=== PATIENT | male | born 1965 | race Caucasian/White ===

== ENCOUNTER 2018-06-06 07:17 | Day surgery (SDC) | payer BC ==
[~2018-06-06] VITALS: Ht 185.4 cm; Wt 86.2 kg
[2018-06-06] VITALS (7 sets, daily range): BP systolic 114–145; BP diastolic 80–98
[2018-06-06] MEDS ORDERED: NASONEX17 GM NASAL (07:49)
[2018-06-06] MEDS ORDERED: LR 1000ml ONE (08:30)
[2018-06-06] MEDS ORDERED: Propofol 200mg/20ml IV ONE (08:30)
[2018-06-06] MEDS ORDERED: Lidocaine 1% MPF 10mg/ml 5ml ONE (08:30)
--- NOTE | 2018-06-06 08:32 | Short Stay Surgery H&P ---
History of Present Illness History of Present Illness Chief Complaint see typed H&P HPI Rodney Garrett is a 53 year old male who was admitted on for History Of Colon Polyps Patient History Allergies: Coded Allergies: No Known Allergies (Unverified , 06/06/18) Medication History Scheduled Mometasone Furoate (Nasonex), 2 SPRAYS NASAL DAILY, (Reported) Physical Exam Vital Signs Last Vital Signs Date Time Temp Pulse Resp B/P (MAP) Pulse Ox O2 Delivery O2 Flow Rate FiO2 06/06/18 07:49 Room Air 06/06/18 07:44 98.1 88 18 145/98 (114) 98 98.1 Plan Attestation Are the patient's medical conditions optimized for surgery? Lupe Melo MD Jun 06, 2018 08:32
--- NOTE | 2018-06-06 08:34 | Pre-Procedure Note/Attestation ---
Pre-Procedure Note/Attestation Complete Prior to Procedure Planned Procedure: not applicable Procedure Narrative: colon Indications for Procedure Pre-Operative Diagnosis: colon screening, FH of Colon CA Attestation I attest that I discussed the nature of the procedure; its benefits; risks and complications; and alternatives (and the risks and benefits of such alternatives ), prior to the procedure, with the patient (or the patient's legal advertising sales representative). I attest that, if there was a reasonable possibility of needing a blood transfusion, the patient (or the patient's legal advertising sales representative) was given the [place] [employer] standardized written summary, pursuant to the Dewey Nadeem Blood Safety Act ([place] Health and Safety Code # 1645, as amended). I attest that I re-evaluated the patient just prior to the surgery and that there has been no change in the patient's H&P, except as documented below: Lupe Melo MD Jun 06, 2018 08:34
[2018-06-06] MEDS ORDERED: LR 1000ml 1,000 ML IVLG SCH (08:51)
[2018-06-06] MEDS ORDERED: Midazolam 2mg/2ml Inj IVP PRN (09:00)
[2018-06-06] MEDS ORDERED: DiphenhydrAMINE 50mg/ml Inj IVP PRN (09:00)
[2018-06-06] MEDS ORDERED: Atropine Inj 1mg/10ml Syr IV PRN (09:00)
[2018-06-06] MEDS ORDERED: fentaNYL 100 mcg/2 mL IV PRN (09:00)
--- NOTE | 2018-06-06 09:03 | Anethesia Preoperative Eval ---
Anesthesia Pre-op PMH/ROS General Date of Evaluation: Jun 06, 2018 Time of Evaluation: 08:22 Anesthesiologist: mary ASA Score: ASA 1 Mallampati Score Class I : Soft palate, uvula, fauces, pillars visible Class II: Soft palate, uvula, fauces visible Class III: Soft palate, base of uvula visible Class IV: Only hard plate visible Mallampati Classification: Class I Surgeon: liam Diagnosis: hx/o colon polyps Surgical Procedure: colonoscopy Anesthesia History: none Family History: no anesthesia problems Allergies: Coded Allergies: No Known Allergies (Unverified , 06/06/18) Medications: see eMAR Anesthesia Pre-op Phys. Exam Physician Exam Last Vital Signs Date Time Temp Pulse Resp B/P (MAP) Pulse Ox O2 Delivery O2 Flow Rate FiO2 06/06/18 07:49 Room Air 06/06/18 07:44 98.1 88 18 145/98 (114) 98 98.1 Constitutional: NAD Neurologic: CN 2-12 intact Cardiovascular: RRR Respiratory: CTA Gastrointestinal: S/NT/ND Airway Exam Mallampati Score: Class II MO: full Neck: supple TMD: 2fb ROM: full Teeth: intact Anesthesia Pre-op A/P Risk Assessment & Plan Assessment: asa1 Plan: mac Status Change Before Surgery: No Pre-Antibiotics Drug: Isis Quiñones MD Jun 06, 2018 09:03
--- NOTE | 2018-06-06 09:13 | Endoscopy Procedure Note ---
Endoscopy Procedure Note General Indication for Procedure: screening Procedures Performed: colonoscopy Operative Findings/Diagnosis: TV polyp - Bx, clip, L>R tics Specimen: yes Pt Tolerated Procedure Well: Yes Estimated Blood Loss: minimal Anesthesia Anesthesiologist: Ben Bermudez Anesthesia: MAC Medications Medication Given: see anesthesia record Inserted Devices Implant(s) used?: No GI Core Measures 50 yrs or older w/o bx or poly: No 10yrs. F/U not recommended: No If not recommended, why?: Above average risk 10 yrs. F/U needed: No 18 years or older w/prev. colo: Yes <3yrs. since last colonoscopy: No Med reason:<3 yrs.: System Reason:<3 yrs.: Last colonoscopy >= to 3yrs: Yes Lupe Melo MD Jun 06, 2018 09:13
--- NOTE | 2018-06-06 09:14 | Brief Operative Note ---
Immediate Post Operative Note Operative Note Chief Complaint: screening Pre-op Diagnosis: colon screening, FH of Colon CA Procedure: colon, bx , clip Post-op Diagnosis: TV polyp - Bx, clip, L>R tics Surgeon: liam Anesthesiologist: Ben wetzel Anesthesia: MAC Specimen: yes Complications: none Condition: stable Fluids: see report Estimated Blood Loss: minimal Drains: none Implant(s) used?: No Lupe Melo MD Jun 06, 2018 09:14
--- NOTE | 2018-06-06 09:16 | Immediate Post-Op Evaluation ---
Immediate Post-Op Evalulation Immediate Post-Op Evalulation Procedure: colonoscopy w/bx Date of Evaluation: Jun 06, 2018 Time of Evaluation: 09:16 IV Fluids: 400ml lr Blood Products: none Estimated Blood Loss: negligible Blood Pressure Systolic: 114 Blood Pressure Diastolic: 92 Pulse Rate: 79 Respiratory Rate: 18 O2 Sat by Pulse Oximetry: 100 Temperature (Fahrenheit): 98.2 Pain Score (1-10): 0 Nausea: No Vomiting: No Complications none Patient Status: awake, reacts, patent Hydration Status: adequate Drug: Isis Quiñones MD Jun 06, 2018 09:16
--- NOTE | 2018-06-06 09:47 | 48 Hour Post Anesthesia Eval ---
Post Anesthesia Evaluation Procedure: colonoscopy w/bx Date of Evaluation: Jun 06, 2018 Time of Evaluation: 09:18 Blood Pressure Systolic: 123 0: 87 Pulse Rate: 81 Respiratory Rate: 18 Temperature (Fahrenheit): 98.2 O2 Sat by Pulse Oximetry: 100 Airway: patent Nausea: No Vomiting: No Pain Intensity: 0 Hydration Status: adequate Cardiopulmonary Status: stable Mental Status/LOC: patient returned to baseline Post-Anesthesia Complications: none Follow-up care needed: N/A Isis Mcintyre MD Jun 06, 2018 09:47
--- NOTE | 2018-06-06 13:30 | Procedure Note ---
DATE OF PROCEDURE: 06/06/2018 GASTROENTEROLOGY PROCEDURE REPORT SURGEON: Lupe Melo M.D. ANESTHESIA: Please see the separate anesthesiologist notes for details. PROCEDURE: Screening colonoscopy. PRE-ENDOSCOPIC DIAGNOSES: 1. Left greater than right side diverticulosis. 2. A 4 mm polyp seen in the transverse colon, status post biopsy removal. 3. Minor oozing of blood seen after biopsies - treated with Endoclip placement x1 (one clip fired without capture). POST-ENDOSCOPIC DIAGNOSES: 1. Left greater than right-sided diverticulosis. 2. Diminutive polyp in the transverse colon, which was removed with biopsy forceps. DESCRIPTION OF PROCEDURE: The procedure, its risks, indications, alternatives, and possible complications including, but not limited to bleeding, infection, perforation, , and anesthesia complications were explained to the patient and informed consent was obtained. Time-out was called and a rectal exam was done. The colonoscope was introduced in the rectum and advanced to the terminal ileum without difficulty. The terminal ileum was normal. The colonic mucosa showed mild diverticulosis of the right colon and more significant diverticulosis in the left colon. In the proximal transverse colon, there was a diminutive polyp, measuring about 4 mm, which was removed with biopsy forceps. There was some minor oozing of blood, which was treated with Endoclip, which misfired but the second Endoclip achieved a good capture. Retroflexed view of the rectum was unremarkable. The colonoscope was removed. The patient was sent to recovery in good condition. COMPLICATIONS: None. RECOMMENDATIONS: 1. Follow up biopsy results. 2. High-fiber diet. 3. Outpatient followup. Lupe Melo M.D. DR: JOSE JOB#: [id number] CC: MIREYA
== END 2018-06-06 10:20 | disposition home or self-care (01) ==
LOC: GAS 07:17
DX: Z12.11 Encounter for screening for malignant neoplasm of colon (principal); D12.3 Benign neoplasm of transverse colon; K57.30 Diverticulosis of large intestine without perforation or abscess without bleeding; Z86.010 Personal history of colon polyps; Z80.0 Family history of malignant neoplasm of digestive organs; J30.9 Allergic rhinitis, unspecified
CPT/HCPCS: 45380; J2704; 94003; 94150